=== PATIENT | male | born 1980 | race Caucasian/White ===

== ENCOUNTER → 2017-05-12 | Outpatient (CLI) | payer BC, OTHER | END | disposition home or self-care (01) | LOC: GMAB 10:44 | PROVIDERS: ATTEND Family Medicine | DX: Z00.00 Encounter for general adult medical examination without abnormal findings (principal) ==

== ENCOUNTER → 2020-12-02 | Outpatient (CLI) | payer BC | LOC: GMAE 11:13 | PROVIDERS: ATTEND Family Medicine | DX: R94.8 Abnormal results of function studies of other organs and systems (principal); E29.1 Testicular hypofunction ==